=== PATIENT | female | born 1945 | race Caucasian/White ===

== ENCOUNTER 2016-10-11 16:01 | Inpatient (IN) | payer MEDICARE ==
--- NOTE | ~2016-10-11 | HP ---
History And Physical [place] [id number] [facility] [place]. [address] NAME: JEWELL HAM : 49 STATUS : ADM IN [facility]#: [id number] AGE: 71 ADM/REG DATE : 10/11/16 MR#: [id number] REPORT SERV DATE: 10/11/16 DICTATED BY: ANDREI ALMANZA DATE: 10/11/16 REPORT STATUS : Draft TRANSCRIBED BY: MODHomero DATE: 10/11/16 DATE OF ADMISSION: 10/11/2016 HISTORY OF PRESENT ILLNESS: The patient is a 71-year-old female, who is chronically bedridden secondary to severe chronic medical problems and had multiple admissions in the hospital. 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 She was brought to [facility] emergency room by her daughter by her family because of decreased level of consciousness and also daughter who is a very poor historian. She said that the patient had decreased level of consciousness for a few days and she had elevated blood sugar today in the range of 400 and the glucometer was not working. She also had episodes of nausea and vomiting. She said that several days ago, she was [facility] and she was seen there by Dr. Guerra. The patient is lethargic, but she is arousable and she can tell that her primary care physician is Dr. Luis Manuel Ramirez. The patient's daughter cannot report what medication the patient takes and there is also a disabled father in a wheelchair who is unable to speak and constantly having tremor at the bedside who is the patient's according to the daughter. The patient is unable to give more detailed answers. She is lethargic, but she can say yes or no. She denies any chest pain. She is not having abdominal pain as well, but she cannot give more information, so I am unable to do full review of systems. I asked the daughter if the patient had fevers, she said that she does not measure her temperature. Also there was redness and some scratches on the patient's legs and the daughter said that she does not know how they happened. PAST MEDICAL HISTORY: Her past medical history was collected from medical records: 1. Diabetes mellitus uncontrolled. 2. Obstructive sleep apnea on CPAP. 3. History of coronary artery disease with history of percutaneous intervention. 4. History of neurogenic bladder with chronic Hairston catheter. History of recurrent urinary tract infections, previously had ESBL. 5. Sacral decubitus wound with infection. Surgeon Dr. Guerra. 6. Hypothyroidism. 7. Esophageal candidiasis. 8. Left foot cellulitis. 9. Colonic polyps. 10.History off cellulitis on the legs in the past. 11.History of chronic paraparesis secondary to multiple back surgeries and myelopathy that patient had in the past. 12.Syndrome of inappropriate antidiuretic hormone secretion. 13.History of MRSA in the past. 14.History of being on pain medications although daughter cannot report what kind of pain medications she takes. The patient says she had pain patches before. PAST SURGICAL HISTORY: Includes sacral chordoma which she had surgery at [facility]; suprapubic catheter placement and reversal under the care of Dr. Montez; History And Physical [address] [address] NAME: JEWELL HAM : 49 STATUS : ADM IN [facility]#: [id number] AGE: 71 ADM/REG DATE : 10/11/16 MR#: [id number] REPORT SERV DATE: 10/11/16 DICTATED BY: ANDREI ALMANZA DATE: 10/11/16 REPORT STATUS : Draft TRANSCRIBED BY: RICO DATE: 10/11/16 colostomy; left spine surgery x3; and foot surgery. ALLERGIES: NO KNOWN DRUG ALLERGIES. SOCIAL HISTORY: She is . suffers with Parkinson's disease, at the bedside, very disabled. According to the daughter, she stays with her and also she has 4 total children. No tobacco. No alcohol abuse. FAMILY HISTORY: Father from subdural hematoma and pneumonia. Strong family history of diabetes and heart disease. HOME MEDICATIONS: Pharmacy tried to obtain home medication list but they are not verified, so pharmacy is going to verify home medications and put on the chart for us to address. PHYSICAL EXAMINATION: GENERAL: Well-nourished, well-developed female, lethargic but arousable. VITAL SIGNS: Blood pressure 154/124, temperature 98, heart rate 110, respiratory rate 24, and oxygen saturation 95 on room air. Later blood pressure was checked which was 140/90. HEENT: Head atraumatic, normocephalic. Conjunctivae clear. Pupils are equal and reactive to light and accommodation. Extraocular muscles are intact. NECK: Supple. Trachea is midline. LYMPH: No supraclavicular or cervical lymphadenopathy. LUNGS: Diminished breath sounds bilaterally. Decreased respiratory effort. CARDIOVASCULAR SYSTEM: Regular rate and rhythm. Point of maximal impulse not displaced. ABDOMEN: Soft. There is no tenderness on abdominal palpation in all abdominal quadrants. Slightly diminished bowel sounds. There is a colostomy in place. EXTREMITIES: No clubbing, cyanosis. No edema. There are some scratches and erythema on the lower extremities. We will also try to look at her sacral decubiti wound, but the patient refused to turn and she started to scream when we tried to turn. We are going to look at it later when she will be on the floor. NEUROLOGICAL: She is lethargic, but she is arousable. She can follow commands very minimally. She can answer only some questions yes or no, then she goes to sleep again. SKIN: Normal color, slightly decreased turgor. There is erythema on both feet and there are scratches and wounds on her anterior yuan. LABORATORY RESULTS: ABG 7.53, pCO2 of 30, PO2 of 53, bicarbonate 24.3, and oxygen saturation was 88.7 on 21% of oxygen. White count 16.8, hemoglobin 10.7, hematocrit 34.3, platelet count 358, and MCV was 75.4. Urinalysis showed trace amount of ketone, moderate amount of leukocyte esterase, and 26 white cells. Troponin was less than 0.05. Lactic acid level 1.8. ALT 11, AST 12, and lipase 84. Wound cultures on October 04 this year grew MRSA. Urine cultures which were done on 09/30/2016, showed Acinetobacter, sensitive to different medications including cefepime and Pseudomonas. CT of the brain without contrast, no acute intracranial abnormality. EKG showed sinus tachycardia with a rate of 115. ASSESSMENT AND PLAN: This is a 71-year-old female, chronically bedridden with multiple contractures on her legs with chronic sacral decubitus wound with chronic colostomy as well as indwelling Hairston catheter. Also with other chronic medical problems listed above History And Physical [address] [address] NAME: JEWELL HAM : [birth year] STATUS : ADM IN [facility]#: [id number] AGE: 71 ADM/REG DATE : 10/11/16 MR#: [id number] REPORT SERV DATE: 10/11/16 DICTATED BY: ANDREI ALMANZA DATE: 10/11/16 REPORT STATUS : Draft TRANSCRIBED BY: RICO DATE: 10/11/16 presented with 1. Decreased level of consciousness. 2. Leukocytosis. 3. Bilateral leg wounds. 4. Infected sacral decubiti wound. 5. Mild hypoxemia. 6. Diabetes mellitus, type 2 uncontrolled. 7. Nausea. 8. Mild recurrent UTI. 9. History of hypothyroidism. We will admit the patient to cardiac telemetry bed for her decreased level of consciousness. We will do Neurocheks. Check her ammonia level. Check serum B12 and folic acid level. For leukocytosis, we will draw blood cultures and will draw also wound cultures. We will start the patient on intravenous vancomycin and cefepime and ask Infectious Disease to see the patient for a sacral decubitus wound. We will ask Dr. Guerra to see the patient. For diabetes mellitus, uncontrolled, we will put the patient on insulin drip level 2. For her nausea, we will give symptomatic treatment with intravenous Zofran, and we will also put the patient on clear liquids if she is awake. We will do CT of the abdomen and pelvis without contrast. We will hold on pain medications now since the patient is minimally responsive. We will check serial troponins, first one minimally elevated, likely related to demand ischemia. MG/RICO Andrei Almanza M.D. / [id number] CC: MD Luis Manuel Pickering M.D.
--- NOTE | ~2016-10-11 | DS ---
Discharge Summary [place] [address] [place]. [address] NAME: JEWELL HAM : 49 STATUS : DIS IN PAT#: [id number] AGE: 71 ADM/REG DATE : 10/11/16 MR#: [id number] REPORT SERV DATE: 10/16/16 DICTATED BY: DEMIAN SIMPSON DATE: 10/15/16 REPORT STATUS : Draft TRANSCRIBED BY: MODL DATE: 10/15/16 ADMISSION DATE: 10/11/2016 DISCHARGE DATE: 10/15/2016 DIAGNOSES: 1. Encephalopathy, resolved. 2. Leukocytosis, resolved. 3. Stage IV chronic decubitus ulcer. 4. Chronic leg wound with infection. 5. Type 2 diabetes. 6. Chronic debility. 7. Esophagitis with duodenal ulcers. FOLLOWUP: The patient should follow up with her primary care physician in one to two weeks and follow up with Dr. Guerra for wound care in one week and also the patient to follow up with GI in three weeks for pathology report. Patient will be discharged to home with home health, wound care nurse, and nursing aides. HOSPITALISTS: 1. Dr. Milli Jack. 2. Dr. Simpson. CONSULTANTS: 1. General Surgery, Dr. Zaman for Dr. Guerra. 2. Infectious Disease, Dr. Juan Pablo Gauthier. 3. GI, Dr. Kike Laws [facility], and Dr. Paulson. 4. Dr. Sunny Voss. PROCEDURES: EGD with grade B esophagitis and shallow duodenal ulcers on 10/14/2016. HOSPITAL COURSE: Please see H and P dictated by Dr. Jack. This is a 71-year-old female with the past medical history of chronic stage IV sacral decubitus ulcer, being followed by Dr. Guerra and primary care physician as an outpatient with a poor mobility, was brought to the emergency department by family due to decreased level of consciousness and also having hyperglycemia in the 400s. The patient was found to be lethargic and was admitted to the Hospitalist Service and initially cared for by Dr. Jack. The patient was placed on broad-spectrum IV antibiotics and outside event sales specialist/general surgeon, Dr. Guerra, was consulted. Dr. Zaman, Dr. Guerra's colleague, saw the patient and also he stated that the sacral wound was not infected but still remains at a stage IV, very large. Also, Infectious Disease, Dr. Juan Pablo Gauthier was consulted, who managed the patient's antibiotic. The patient was found to have multiple organisms to grow out of the right heel ulcer and grew Enterobacter and Proteus, and had continued management with antibiotics. She did have one blood culture to grow out Staph negative species; however, only one out of two. She was continued on antibiotics although suspected most likely a contaminant and being followed by Infectious Disease specialist. The patient did require insulin drip for blood sugar management initially on admission and transitioned to sliding scale insulin. Discharge Summary [address] [place]. [address] NAME: JEWELL HAM : 49 STATUS : DIS IN PAT#: [id number] AGE: 71 ADM/REG DATE : 10/11/16 MR#: [id number] REPORT SERV DATE: 10/16/16 DICTATED BY: DEMIAN SIMPSON DATE: 10/15/16 REPORT STATUS : Draft TRANSCRIBED BY: RICO DATE: 10/15/16 General Surgery stated the patient did not require any surgical intervention and stated the patient should follow up in Dr. Guerra's clinic. The patient's encephalopathy resolved during her hospital course and noted to be back to her baseline after several days. I attended care for Ms. Ham initiating on 10/14/2016. The patient remained alert and oriented x3, and it was discussed with the patient on several occasions about a high recommendation of SNF Facility for better wound care healing and care. However, the patient was very adamant about refusing to go to SNF. She says that she and her have tried that before in the past and it did not work out well for them. The patient was adamant about returning to home, wants to be at home with her . She states her daughter takes care of them both and wanted to return to home and refuses to go anywhere else. The patient continued wound care. While during her hospital course, she also had an EGD by GI physician for complaint of nausea, found to have esophagitis and shallow multiple duodenal ulcers and placed on Protonix b.i.d. with a recommendation of eight weeks of b.i.d. Protonix by Dr. Kkie Laws. The patient is to follow up in GI Clinic for pathology report results. Also, the patient was transitioned off IV antibiotics and placed on three antibiotics with Zyvox, Duricef, and Cipro by Infectious Disease specialist, Dr. Juan Pablo Gauthier. The patient was approved for discharge by specialists and to follow up as an outpatient. This discharge required greater than 35 minutes. DICTATED BY: Stephany Dawn/RICO Demian Simpson M.D. / [id number] CC: Stephany Dawn M.D. Robert Barnett III, M.D.
--- NOTE | ~2016-10-11 | CN ---
Consultation Report [facility] [address] [place]. [address] NAME: JEWELL HAM : 49 STATUS : ADM IN PAT#: [id number] AGE: 71 ADM/REG DATE : 10/11/16 MR#: [id number] REPORT SERV DATE: 10/12/16 DICTATED BY: ROLAND VOSS DATE: 10/12/16 REPORT STATUS : Draft TRANSCRIBED BY: MODL DATE: 10/12/16 CARDIOLOGY CONSULTATION DATE OF CONSULTATION: INDICATION: Elevated troponin. HISTORY: The patient is a 71-year-old white female, paraplegic with chronic decubitus wounds, who was admitted with a decreased level of consciousness. She had been seen several days ago by Dr. Liao in the [facility]. The patient at time of admission was unable to give any details of her history. At this time, she is more alert. She denies any previous cardiac history, although her records suggests she may have had a previous PCI. She has had no chest discomfort, PND, or orthopnea. She is not active, spending most of her day either sitting or in a wheelchair. CURRENT HOME MEDICATIONS: Vitamin D's doses are incomplete. At present as family is uncertain of medications; however, provisionally they include vitamin D daily, doxycycline b.i.d., baclofen, lorazepam, Percocet, prednisone, Lyrica, Lantus, and Lasix. ALLERGIES OR INTOLERANCES: None known. SOCIAL HISTORY: . has Parkinson disease and is in the room, wrapped in a chair. She is wheelchair-bound. Four children. Negative for alcohol or tobacco use. FAMILY HISTORY: Father of pneumonia and subdural hematoma. Mother had emphysema. Father also had emphysema. Strong family history of diabetes and heart disease. The patient did have secondary tobacco exposure as a child. PAST MEDICAL HISTORY/REVIEW OF SYSTEMS: Positive for neurogenic bladder with chronic Hairston catheter; recurrent urinary tract infections; sacral decubitus; SIADH; hypothyroidism; obstructive sleep apnea, unable to tolerate CPAP; diabetes mellitus. She had previous surgeries including surgery on a sacral chordoma at [facility], previous suprapubic catheter placement and reversal under the care of Dr. Montez, previous colostomy, previous spinal surgery, and previous foot surgery. She is presently being seen by Dr. Faith in Infectious Disease for treatment of an infected sacral decubitus. An MRI from 10/15/2015 showed no previous evidence of osteomyelitis. PHYSICAL EXAMINATION: GENERAL: 71-year-old white female, who is pleasant and conversant. VITAL SIGNS: Blood pressure 131/57, pulse 94 and regular, respirations 20. SKIN: No xanthelasmas. HEENT: She is normocephalic. There is no pallor. Sclerae white. JVD is not elevated. There are no carotid bruits. Consultation Report [address] [place]. [address] NAME: JEWELL HAM : 49 STATUS : ADM IN PAT#: [id number] AGE: 71 ADM/REG DATE : 10/11/16 MR#: [id number] REPORT SERV DATE: 10/12/16 DICTATED BY: ROLAND VOSS DATE: 10/12/16 REPORT STATUS : Draft TRANSCRIBED BY: RICO DATE: 10/12/16 CHEST: No crackles. CARDIAC: S1 normal, S2 physiologic. ABDOMEN: Soft. EXTREMITIES: With diminished pulses. There is some mild rubor. Abdomen has a surgical wound covered by Vac-Pacs. LABORATORY DATA: Procalcitonin on admission 1.57. BUN 16, creatinine 0.86. Initial troponin 0.05 with trends up at 0.18 and 0.2. Pre-albumin is low at 16.1. BNP on admission was 213. Lactate 1.8. White count initially 16.8, hemoglobin 10.1, platelets 393,000. ECG shows sinus rhythm with no ST-T wave changes. There were some PVCs. IMPRESSION: Elevated troponin, while this likely is a reflex decreased perfusion secondary to underlying infection, she does have in some reports underlying coronary artery disease. She does not have risk factors such as smoking or family history. However, her diabetes does place her at risk. We do not have any records of her undergoing PCI in the [facility] data. We will have to see if there are some outside records documenting this intervention. At this point, there is no acute intervention required at some time prior to discharge, MPI may be appropriate. AYO/RICO Roland Voss M.D. / [id number] CC: Kaelyn Estrada MD [facility]
--- NOTE | ~2016-10-11 | CN ---
Consultation Report [facility] [address] [place]. [address] NAME: JEWELL HAM : 49 STATUS : ADM IN [facility]#: [id number] AGE: 71 ADM/REG DATE : 10/11/16 MR#: [id number] REPORT SERV DATE: 10/13/16 DICTATED BY: SHAMIR PAULSON DATE: 10/13/16 REPORT STATUS : Draft TRANSCRIBED BY: MODL DATE: 10/13/16 DATE OF CONSULTATION: 10/13/2016 REASON FOR CONSULTATION: GI consultation regarding nausea. HISTORY OF PRESENT ILLNESS: This is a 71-year-old patient, who is being treated for a sacral decubitus ulcer. She has had chronic nausea ever since her ulceration developed. She has symptoms of early satiety and GERD, but no odynophagia or dysphagia. No vomiting. Some intermittent migratory abdominal cramping, relieved with bowel movements. Ostomy output is at baseline. No melena or hematochezia. No recent history of endoscopy. She has a history of esophageal candidiasis by chart review. MEDICAL HISTORY: Diabetes; sleep apnea, on CPAP; CAD with history of percutaneous intervention; neurogenic bladder with chronic Hairston catheter; recurrent UTI; sacral decubitus ulcer; hypothyroidism; esophageal candidiasis; left foot cellulitis; colon polyps; history of cellulitis on the legs; paraplegia; history of multiple back surgeries; SIADH; history of MRSA. ALLERGIES: NONE. MEDICATIONS AT HOME: Baclofen, doxycycline, vitamin D, Lasix, Lantus, Ativan, Ditropan, Percocet, Deltasone, and Lyrica. SOCIAL HISTORY: She does not use alcohol or tobacco significantly. FAMILY HISTORY: Negative for GI malignancy. REVIEW OF SYSTEMS: A complete review of systems was obtained and negative except that noted in the history of present illness. PHYSICAL EXAMINATION: VITAL SIGNS: She is currently afebrile, temperature is 97.0, pulse 63, respirations 20, blood pressure 154/64. EYES: Sclerae are anicteric. NECK: Supple without lymphadenopathy. Pharynx is pink without exudate. LUNGS: Clear to auscultation bilaterally. HEART: Regular rate and rhythm. S1 and S2 heard without rubs or gallops. ABDOMEN: Normal bowel sounds. Belly is soft and nondistended. There is mild diffuse tenderness without rebound or guarding. No hepatosplenomegaly is detected. Overall, benign abdomen. Ostomy is intact. EXTREMITIES: No pedal edema or rash. NEUROLOGIC: She is paraplegic and alert and oriented. LABORATORY DATA: White blood cell count 7.3, hematocrit is 29.8, MCV 76, platelets 309. BUN Consultation Report [place] [id number] [place] [address] NAME: JEWELL HAM : 49 STATUS : ADM IN PAT#: [id number] AGE: 71 ADM/REG DATE : 10/11/16 MR#: [id number] REPORT SERV DATE: 10/13/16 DICTATED BY: SHAMIR PAULSON DATE: 10/13/16 REPORT STATUS : Draft TRANSCRIBED BY: RICO DATE: 10/13/16 is 10, creatinine is 0.59. Liver tests are normal. Lipase is normal. Troponin initially bumped to 0.20, now it is 0.05. TSH is normal. IMAGING: CT scan of abdomen and pelvis is negative except for sacral ulceration. IMPRESSION: 1. Chronic nausea, likely multifactorial, may include sources such as infectious etiology and systemic response to infection over sacral decubitus area. Also possibilities of gastroparesis given her diabetes as well as peptic ulcer disease and/or esophageal candidiasis. 2. Multiple comorbidities as listed above including colostomy and recently elevated troponin. RECOMMENDATIONS: 1. Continue Protonix. 2. Upper endoscopy to exclude esophageal candidiasis and other etiologies as above. 3. Touch base with Dr. Voss prior to endoscopy for risk stratification of sedation and procedure. CC/PETEL Shamir Paulson M.D. / [id number] CC: MD Luis Manuel Pickering M.D.
--- NOTE | ~2016-10-11 | EGD ---
EGD REPORT [facility] [address] [address] NAME: JEWELL HAM : 49 STATUS : ADM IN PAT#: [id number] AGE: 71 ADM/REG DATE : 10/11/16 MR#: [id number] REPORT SERV DATE: 10/14/16 DICTATED BY: KIKE KAMINSKI DATE: 10/14/16 REPORT STATUS : Draft TRANSCRIBED BY: [facility] DATE: 10/14/16 Endoscopy Center Patient Name: Jeewll Ham Date of : 1945 Attending MD: KIKE KAMINSKI MD Procedure Date No Time: 10/14/2016 Procedure: Upper GI endoscopy Indications: Nausea with vomiting Medicines: Monitored Anesthesia Care Complications: No immediate complications. Estimated blood loss: Minimal. Procedure: After obtaining informed consent, the endoscope was passed under direct vision. Throughout the procedure, the patient's blood pressure, pulse, and oxygen saturations were monitored continuously. The GIF [id number] was introduced through the mouth, and advanced to the second part of duodenum. The upper GI endoscopy was accomplished without difficulty. The patient tolerated the procedure well. Findings: LA Grade B (one or more mucosal breaks greater than 5 mm, not extending between the tops of two mucosal folds) esophagitis with no bleeding was found in the lower third of the esophagus. The entire examined stomach was normal. Many non-bleeding superficial duodenal ulcers with pigmented material were found in the duodenal bulb and in the second part of the duodenum. The largest lesion was 5 mm in largest dimension. Biopsies were taken with a cold forceps for histology. Estimated blood loss was minimal. The exam was otherwise without abnormality. Impression: - LA Grade B erosive esophagitis. - Multiple duodenal ulcers. Biopsied. - The examination was otherwise normal. Recommendation: - Return patient to hospital [facility] for ongoing care. - Use Protonix (pantoprazole) 40 mg PO BID for 8 weeks. - Await pathology results. Procedure Code(s): --- Professional --- 21460, Esophagogastroduodenoscopy, flexible, transoral; with biopsy, single or multiple Diagnosis Code(s): --- Professional --- K20.8, Other esophagitis EGD REPORT [address] [address] NAME: JEWELL HAM : 49 STATUS : ADM IN PAT#: [id number] AGE: 71 ADM/REG DATE : 10/11/16 MR#: [id number] REPORT SERV DATE: 10/14/16 DICTATED BY: KIKE KAMINSKI DATE: 10/14/16 REPORT STATUS : Draft TRANSCRIBED BY: [employer] DATE: 10/14/16 K26.9, Duodenal ulcer, unspecified as acute or chronic, without hemorrhage or perforation R11.2, Nausea with vomiting, unspecified CPT copyright 2013 [employer]. All rights reserved. The codes documented in this report are preliminary and upon software quality assurance engineer review may be revised to meet current compliance requirements. Kike Kaminski MD KIKE KAMINSKI MD 10/14/2016 12:03 PM This report has been signed electronically. Number of Addenda: 0 Note Initiated On: 10/14/2016 11:41 AM Scope Withdrawal Time 0 hours 0 minutes 0 seconds
[2016-10-11 15:37] LABS: BE (BASE EXCESS) 2.4 MEQ/L (0 +/- 2.5); CARBOXYHEMOGLOBIN 1.8 % (0-3); HCO3 (ACTUAL BICARBONATE) 24.3 MEQ/L (23-27); HEMOBLOGIN CONTENT 12.2 G/DL (12-16); INSTRUMENT SERIAL # 8087; METHEMOGLOBIN 0.2 % (0-3); O2 CONTENT 14.9 VOL% (18-24); PCO2 (CO2 TENSION) 30 MMHG (35-45); PO2 (O2 TENSION) 53 MMHG (79-93); SAMPLE Arterial; pH 7.53 (7.37-7.43)
[~2016-10-11 16:01] MED LIST: AMARYL2 PO; AMB10 PO; ASA5GR PO; ASAB PO; ASABAYER PO; ATEN25 PO; ATV.5 PO; AVINZA60 PO; BACDS PO; BETIMOL0.25 % OP; CEFT5 PO; CRANBERRY1 TAB OR; DITROXL5 PO; DURA50 TOP; ENDOCET1 TA1 PO; ENDOCET1 TA3 PO; EZFE 200200 MG PO; FLEET MINERL PR; FLEXERIL5 MG PO; FLUCON2 PO; GLUCOPHAGE1000 MG PO; HUMALOG SC; HUMULIN SC; INSNOV7030 SC; INSNOVR SC; KLOR-CON 1010 MEQ PO; KLOR-CON M1010 MEQ PO; L40 PO; LANTUS SC; LANTUSCART SC; LEVAQUIN750 MG PO; LEVEMIR SC; LEVOTHYROXIN50 MCG PO; LIOR10 PO; LOTE5 PO; LYRICA100 MG PO; LYRICA200 MG PO; MELA3 PO; MELATONIN OTC PO; MELATONIN1 M1 PO; METAMUCIL CAN7 OZ PO; MIRALAXPKT PO; MOMUD PO; MULTIVIT/MIN PO; MYCOSCROI TOP; NOVOLOG; NOVOLOG SC; P5 PO; PERCOCET1 TA4 PO; PLAQ200B PO; PREV30 PO; REM15 PO; ROCEPH IM; ROXICET1 TAB PO; SENTAB PO; SOD CHLORIDE1 G1 PO; TRAVATAN OPH; TRAZ100 PO; UNABLE TO RECONCILE; VITAMIN C OTC PO; VITC500 PO; ZESTRIL10 MG PO; ZOFRAN4 PO
[2016-10-11 16:10] LABS: BASOPHILS 0.1 %; BASOPHILS ABSOLUTE 0.01 10/3/uL (0.0-0.16); EOSINOPHILS 0.2 %; EOSINOPHILS ABSOLUTE 0.04 10/3/uL (0.0-0.53); HEMATOCRIT 34.3 % (36.0-48.0); HEMOGLOBIN 10.7 g/dL (12.0-16.0); IMMATURE GRANULOCYTES 0.2 %; IMMATURE GRANULOCYTES ABSOLUTE 0.04 10/3/uL (0.0-0.11); LYMPHOCYTES 3.1 %; LYMPHOCYTES ABSOLUTE 0.53 10/3/uL (0.67-4.30); MEAN CORPUS HGB CONC 31.2 g/dL (32.0-36.0); MEAN CORPUSCULAR HEMOGLOB 23.5 pg (26.0-34.0); MEAN CORPUSCULAR VOLUME 75.4 fL (80-100); MEAN PLATELET VOLUME 10.7 fL (9.2-13.0); MONOCYTES 5.5 %; MONOCYTES ABSOLUTE 0.93 10/3/uL (0.21-1.20); NEUTROPHILS 90.9 %; NEUTROPHILS ABSOLUTE 15.29 10/3/uL (2.02-8.40); RBC DISTRIBUTION WIDTH 17.3 % (12.0-16.0); RED CELL COUNT 4.55 10/6/uL (4.0-5.6)
[2016-10-11 16:15] LABS: ER CBC TAT 0 Hrs 10 Mins; MANUAL DIFF NO %; PLATELET COUNT 358 10/3/uL (150-400); WHITE BLOOD CELLS 16.8 10/3/uL (4.5-10.5)
[2016-10-11 16:18] LABS: ASCORBIC ACID (UR NOT ORDER) NEG (NEG); BILIRUBIN, URINE NEGATIVE (NEG); ER URINALYSIS TAT 0 Hrs 13 Mins; KETONE, URINE TRACE MG/DL (NEG); LEUKOCYTE ESTERASE(NOT OR MOD (NEG); NITRITE (URINE) NEG (NEG); WBC (NOT ORDERED) (RFLEX) 26 (0-5)
[2016-10-11] MEDS ORDERED: VITD PO (16:23)
[2016-10-11] MEDS ORDERED: LIOR10 PO (16:25)
[2016-10-11] MEDS ORDERED: MONODOX100 MG PO (16:25)
[2016-10-11] MEDS ORDERED: PERCOCET 10/3251 TAB PO (16:26)
[2016-10-11] MEDS ORDERED: ATV.5 PO (16:26)
[2016-10-11 16:27] LABS: BUN (BLOOD UREA NITROGEN) 17 MG/DL (6-23); CALCIUM, SERUM 8.3 MG/DL (8.5-10.4); CO2 (CARBON DIOXIDE) 29 MMOL/L (24-34); CREATININE 0.89 MG/DL (0.55-1.02); GFR AFRICAN AMERICAN 77 ML/MIN (>=60); GFR NON AFRICAN AMERICAN 66 ML/MIN (>=60); POTASSIUM, SERUM 3.4 MMOL/L (3.5-5.3); SGOT(AST) 12 U/L (5-40); SGPT(ALT) 11 U/L (5-65); TOTAL BILIRUBIN 0.4 MG/DL (0-1.2); TOTAL PROTEIN 7.3 G/DL (6.0-8.5)
[2016-10-11 16:28] LABS: A/G RATIO 0.6 (0.7-1.9); ALBUMIN 2.7 G/DL (3.5-5.0); ALKALINE PHOSPHATASE 100 U/L (45-117); CHLORIDE, SERUM 94 MMOL/L (96-112); GLOBULIN 4.6 G/DL (2.5-4.1); GLUCOSE, SERUM 374 MG/DL (60-99); SODIUM, SERUM 133 MMOL/L (135-148)
[2016-10-11] MEDS ORDERED: P5 PO (16:28)
[2016-10-11] MEDS ORDERED: LYRICA150 MG PO (16:28)
[2016-10-11 16:29] LABS: TROPONIN I 0.05 NG/ML (<0.05)
[2016-10-11] MEDS ORDERED: LANTUS SC (16:29)
[2016-10-11] MEDS ORDERED: L40 PO (16:29)
[2016-10-11] MEDS ORDERED: *UNABLE2 (16:32)
[2016-10-11 21:54] LABS: B NATRIURETIC PEPTIDE (BNP) 213.2 PG/ML (< 100.0)
[2016-10-11 22:04] LABS: FOLATE 13.5 NG/ML (>5.2); PROCALCITONIN 1.57 ng/mL (<0.5); TROPONIN I 0.18 NG/ML (<0.05); ULTRASENSITIVE TSH 1.34 MCIU/ML (0.358-3.740)
[2016-10-12 05:02] LABS: HEMATOCRIT 32.5 % (36.0-48.0); HEMOGLOBIN 10.1 g/dL (12.0-16.0); MEAN CORPUS HGB CONC 31.1 g/dL (32.0-36.0); MEAN CORPUSCULAR HEMOGLOB 23.3 pg (26.0-34.0); MEAN CORPUSCULAR VOLUME 75.1 fL (80-100); MEAN PLATELET VOLUME 10.6 fL (9.2-13.0); PLATELET COUNT 393 10/3/uL (150-400); RBC DISTRIBUTION WIDTH 17.4 % (12.0-16.0); RED CELL COUNT 4.33 10/6/uL (4.0-5.6); WHITE BLOOD CELLS 13.4 10/3/uL (4.5-10.5)
[2016-10-12 05:03] LABS: MANUAL DIFF YES %
[2016-10-12 05:14] LABS: BUN (BLOOD UREA NITROGEN) 16 MG/DL (6-23); CALCIUM, SERUM 8.6 MG/DL (8.5-10.4); CHLORIDE, SERUM 98 MMOL/L (96-112); CO2 (CARBON DIOXIDE) 30 MMOL/L (24-34); CREATININE 0.86 MG/DL (0.55-1.02); GFR AFRICAN AMERICAN 80 ML/MIN (>=60); GFR NON AFRICAN AMERICAN 69 ML/MIN (>=60); POTASSIUM, SERUM 3.2 MMOL/L (3.5-5.3); SODIUM, SERUM 135 MMOL/L (135-148)
[2016-10-12 05:15] LABS: GLUCOSE, SERUM 127 MG/DL (60-99)
[2016-10-12 05:19] LABS: ANISOCYTOSIS 1+ (5-10/OIF) (0-5/OIF); LYMPHOCYTES 4 %; LYMPHOCYTES ABSOLUTE (CALC) 0.54 10/3/uL (0.67-4.30); MONOCYTES 6 %; NEUTROPHILS ABSOLUTE (CALC) 12.06 10/3/uL (2.02-8.40); PLATELET ESTIMATE ADQ (ADEQUATE); SEGMENTED NEUTROPHIL (0) 90 %; TOTAL NUCLEATED CELLS 100
[2016-10-12 05:20] LABS: HYPOCHROMIA 1+ (3-10/OIF) (0-2/OIF); MICROCYTES 1+ (5-10/OIF) (0-5/OIF)
[2016-10-13 06:02] LABS: BASOPHILS 0 %; EOSINOPHILS 2.3 %; EOSINOPHILS ABSOLUTE 0.17 10/3/uL (0.0-0.53); HEMATOCRIT 29.8 % (36.0-48.0); HEMOGLOBIN 9.1 g/dL (12.0-16.0); IMMATURE GRANULOCYTES 0.4 %; IMMATURE GRANULOCYTES ABSOLUTE 0.03 10/3/uL (0.0-0.11); LYMPHOCYTES 16.7 %; LYMPHOCYTES ABSOLUTE 1.22 10/3/uL (0.67-4.30); MEAN CORPUS HGB CONC 30.5 g/dL (32.0-36.0); MEAN CORPUSCULAR HEMOGLOB 23.2 pg (26.0-34.0); MONOCYTES 10.4 %; MONOCYTES ABSOLUTE 0.76 10/3/uL (0.21-1.20); NEUTROPHILS 70.2 %; NEUTROPHILS ABSOLUTE 5.11 10/3/uL (2.02-8.40); PLATELET COUNT 309 10/3/uL (150-400); RBC DISTRIBUTION WIDTH 17.8 % (12.0-16.0); RED CELL COUNT 3.92 10/6/uL (4.0-5.6)
[2016-10-13 06:06] LABS: MANUAL DIFF NO %; WHITE BLOOD CELLS 7.3 10/3/uL (4.5-10.5)
[2016-10-13 06:20] LABS: CALCIUM, SERUM 7.9 MG/DL (8.5-10.4); CHLORIDE, SERUM 102 MMOL/L (96-112); CO2 (CARBON DIOXIDE) 26 MMOL/L (24-34); CREATININE 0.59 MG/DL (0.55-1.02); GFR AFRICAN AMERICAN 108 ML/MIN (>=60); GFR NON AFRICAN AMERICAN 94 ML/MIN (>=60); GLUCOSE, SERUM 125 MG/DL (60-99); POTASSIUM, SERUM 3.7 MMOL/L (3.5-5.3); SODIUM, SERUM 135 MMOL/L (135-148)
[2016-10-13 06:21] LABS: BUN (BLOOD UREA NITROGEN) 10 MG/DL (6-23); TROPONIN I 0.05 NG/ML (<0.05)
[2016-10-13] MEDS ORDERED: L40 PO (12:17)
[2016-10-13] MEDS ORDERED: DITRO5 PO (12:19)
[2016-10-14 04:41] LABS: BASOPHILS 0.1 %; BASOPHILS ABSOLUTE 0.01 10/3/uL (0.0-0.16); EOSINOPHILS 2.4 %; EOSINOPHILS ABSOLUTE 0.18 10/3/uL (0.0-0.53); HEMATOCRIT 31.4 % (36.0-48.0); HEMOGLOBIN 9.7 g/dL (12.0-16.0); IMMATURE GRANULOCYTES 0.3 %; IMMATURE GRANULOCYTES ABSOLUTE 0.02 10/3/uL (0.0-0.11); LYMPHOCYTES 16.1 %; LYMPHOCYTES ABSOLUTE 1.22 10/3/uL (0.67-4.30); MEAN CORPUS HGB CONC 30.9 g/dL (32.0-36.0); MEAN CORPUSCULAR HEMOGLOB 23.3 pg (26.0-34.0); MEAN CORPUSCULAR VOLUME 75.5 fL (80-100); MEAN PLATELET VOLUME 10.2 fL (9.2-13.0); MONOCYTES 6.5 %; MONOCYTES ABSOLUTE 0.49 10/3/uL (0.21-1.20); NEUTROPHILS 74.6 %; NEUTROPHILS ABSOLUTE 5.65 10/3/uL (2.02-8.40); PLATELET COUNT 300 10/3/uL (150-400); RBC DISTRIBUTION WIDTH 17.2 % (12.0-16.0); RED CELL COUNT 4.16 10/6/uL (4.0-5.6); WHITE BLOOD CELLS 7.6 10/3/uL (4.5-10.5)
[2016-10-14 04:43] LABS: MANUAL DIFF NO %
[2016-10-14 04:52] LABS: BUN (BLOOD UREA NITROGEN) 8 MG/DL (6-23); CHLORIDE, SERUM 103 MMOL/L (96-112); CO2 (CARBON DIOXIDE) 27 MMOL/L (24-34); CREATININE 0.55 MG/DL (0.55-1.02); GFR AFRICAN AMERICAN 111 ML/MIN (>=60); GFR NON AFRICAN AMERICAN 96 ML/MIN (>=60); GLUCOSE, SERUM 86 MG/DL (60-99); SODIUM, SERUM 134 MMOL/L (135-148)
[2016-10-14 06:50] LABS: VANCOMYCIN TROUGH 17.3 MCG/ML (10.0-20.0)
[2016-10-15] MEDS ORDERED: ASA5GR PO (14:57)
[2016-10-15] MEDS ORDERED: LIPITOR80 MG PO (15:03)
[2016-10-15] MEDS ORDERED: PROTONIX PO (15:07)
[2016-10-15] MEDS ORDERED: FLORASTOR250 MG PO (15:08)
[2016-10-15] MEDS ORDERED: ZYVOXPO PO (15:09)
[2016-10-15] MEDS ORDERED: DURICEF PO (15:10)
[2016-10-15] MEDS ORDERED: CIP5 PO (15:11)
[2016-10-15] MEDS ORDERED: SULFADIAZINE500 MG PO (15:26)
[2016-10-15] MEDS ORDERED: TOPXL50 PO (15:29)
[2016-10-17 07:10] LABS: NAPA <0.6 ug/mL (6.0-20.0); PROCAINAMIDE <0.4 ug/mL (4.0-10.0)
[2016-11-25] MEDS ORDERED: LOSARTAN/HCTZ PO (09:08)
[2016-11-25] MEDS ORDERED: AMARYL2 PO (09:45)
[2016-11-25] MEDS ORDERED: [UNRECOGNIZED DRUG - OTHER] PO (09:47)
[2016-11-25] MEDS ORDERED: VITAMIN D2 (09:53)
[2016-11-25] MEDS ORDERED: LYRICA150 MG PO (09:54)
[2016-11-25] MEDS ORDERED: ACIDOPHILUS PO (09:55)
[2016-11-25] MEDS ORDERED: FERROUS SULF325 M1 PO (09:57)
[2016-11-25] MEDS ORDERED: MIRAPEX5 PO (09:57)
[2016-11-25] MEDS ORDERED: PLAQ200B PO (09:58)
[2016-11-25] MEDS ORDERED: LOP25 PO (10:00)
[2016-11-25] MEDS ORDERED: NOVOLOG SC (10:05)
== END 2016-10-15 17:05 | disposition home health service (06) | DRG 592 ==
LOC: ER 16:01 → 6NO 18:21
PROVIDERS: Emergency Medicine; Hospitalist; Internal Medicine; Internal Medicine Clinical Cardiac Electrophysiology; Internal Medicine Gastroenterology
PROC: 0DB98ZX Excision of Duodenum, Via Natural or Artificial Opening Endoscopic, Diagnostic (ICD-10-PCS; principal; 2016-10-14 11:53)
DX: L89.892 Pressure ulcer of other site, stage 2 (principal); G93.41 Metabolic encephalopathy; L89.154 Pressure ulcer of sacral region, stage 4; E22.2 Syndrome of inappropriate secretion of antidiuretic hormone; G82.20 Paraplegia, unspecified; E11.621 Type 2 diabetes mellitus with foot ulcer; K26.9 Duodenal ulcer, unspecified as acute or chronic, without hemorrhage or perforation; L89.612 Pressure ulcer of right heel, stage 2; K22.10 Ulcer of esophagus without bleeding; E11.65 Type 2 diabetes mellitus with hyperglycemia; N31.9 Neuromuscular dysfunction of bladder, unspecified; K21.0 Gastro-esophageal reflux disease with esophagitis; R11.2 Nausea with vomiting, unspecified; Z87.440 Personal history of urinary (tract) infections; Z99.3 Dependence on wheelchair; Z77.22 Contact with and (suspected) exposure to environmental tobacco smoke (acute) (chronic); Z74.01 Bed confinement status; Z86.010 Personal history of colon polyps; Z86.14 Personal history of Methicillin resistant Staphylococcus aureus infection; Z93.3 Colostomy status; Z79.4 Long term (current) use of insulin
CPT/HCPCS: 36600; 70450; 71010; 73630-LT; 74176; 80048; 80053; 80192; 80202; 81001; 82140; 82330; 82607; 82746; 82805; 82962; 83605; 83690; 83735; 83880; 84132; 84145; 84443; 84484; 85025; 87040; 87070; 87077; 87086; 87150; 87186; 87205; 88305; 93005; 93970; 94640; 99285; A9270-GY; C9113; J0461; J0690; J0692; J2405; J3370